=== PATIENT | female | born 1995 | race Caucasian/White ===

== ENCOUNTER 2023-02-25 15:13 | Observation (INO) | payer OTHER ==
[2023-02-25 15:22] VITALS: BMI 21.7
[2023-02-25 17:05] LABS: BASO % 0.5 % (0-2.0); EOS % 2.1 % (0-4.5); HEMATOCRIT 42.4 % (32.4-45.2); HEMOGLOBIN 14.6 GM/dL (10.7-15.3); LYMPH % 31.1 % (8-40); MCH 30.7 pg (25.7-33.7); MCHC 34.4 g/dl (32.0-36.0); MEAN CELL VOLUME 89.5 fl (80-96); MONO % 6.8 % (3.8-10.2); NEUT % 59.5 % (42.8-82.8); PLATELET COUNT 300 10^3/uL (134-434); RBC 4.74 M/mm3 (3.60-5.2); RDW 13.1 % (11.6-15.6); WHITE BLOOD COUNT 9.7 K/mm3 (4.0-10.0)
[2023-02-25 17:22] LABS: POTASSIUM 4.1 mmol/L (3.5-5.1)
[2023-02-25 17:24] LABS: ALBUMIN 4.5 g/dl (3.4-5.0); CALCIUM 9.7 mg/dL (8.5-10.1)
[2023-02-25 17:25] LABS: BLOOD UREA NITROGEN 14.2 mg/dL (7-18)
[2023-02-25 17:28] LABS: CREATININE 0.9 mg/dL (0.55-1.3)
[2023-02-25 17:29] LABS: BILIRUBIN,TOTAL 0.4 mg/dL (0.2-1); TOT PROT 8.2 g/dl (6.4-8.2)
[2023-02-25 17:50] LABS: SYPHILIS W/ RPR CONF NON-REACTIVE (NONREACTIVE)
[2023-02-25 18:19] LABS: HIV INTERPRETATION NEGATIVE (NEGATIVE)
[2023-02-25] MEDS ORDERED: RAPID SEQUENCE INTUBATION KIT NR ONE (21:23)
[2023-02-25] MEDS ORDERED: PROPOFOL 1,000,000 MCG/100 ML VIAL ONE (21:23)
[2023-02-26] MEDS ORDERED: ARTIFICIAL TEARS OPHTHALMIC DROPS OU PRN (05:17)
[2023-02-26 06:42] LABS: BASO % 0.5 % (0-2.0); EOS % 2.3 % (0-4.5); HEMOGLOBIN 13.8 GM/dL (10.7-15.3); LYMPH % 29.2 % (8-40); MCHC 32.8 g/dl (32.0-36.0); MEAN CELL VOLUME 91.6 fl (80-96); MONO % 8.9 % (3.8-10.2); NEUT % 59.1 % (42.8-82.8); PLATELET COUNT 314 10^3/uL (134-434); RBC 4.58 M/mm3 (3.60-5.2); RDW 13.2 % (11.6-15.6); WHITE BLOOD COUNT 8.6 K/mm3 (4.0-10.0)
[2023-02-26 06:49] LABS: POTASSIUM 3.9 mmol/L (3.5-5.1)
[2023-02-26 06:52] LABS: CALCIUM 9.4 mg/dL (8.5-10.1)
[2023-02-26 06:53] LABS: BLOOD UREA NITROGEN 12.3 mg/dL (7-18)
[2023-02-26 06:56] LABS: CREATININE 0.7 mg/dL (0.55-1.3)
[2023-02-26 13:26] VITALS: RESP 18; TEMP 98.1
[2023-02-26 14:05] VITALS: BP 109/75; PULSE 73
== END 2023-02-26 14:49 | disposition home or self-care (01) ==
LOC: JER 15:13 → JERBED 17:07
PROVIDERS: ADMIT Internal Medicine; ATTEND Family Medicine
DX: R76.12 Nonspecific reaction to cell mediated immunity measurement of gamma interferon antigen response without active tuberculosis (principal); R06.83 Snoring; R09.81 Nasal congestion
CPT/HCPCS: 0241U-QW; 36415; 71045-TC-FY; 80048; 80053; 84703; 85025; 86704; 86780; 86803; 87116; 87206; 87389; 87517; 87556; 93005; 93010; 99285-25; G0378